=== PATIENT | female | born 1995 | race Two or more races ===

== ENCOUNTER → 2019-01-17 09:14 | Outpatient (CLI) | payer OTHER, SELFPAY ==
--- NOTE | 2019-01-17 09:19 | US_ITS ---
US transvaginal HISTORY: Painful cycles, pelvic pain ITS.REASON: pelvic pain ORDERING PHYSICIAN: Jose Iqbal MD PATIENT AGE: 23 years Comparison: None FINDINGS: The uterus is 7 x 3 x 4 cm with a combined endometrial thickness of 6 mm. No uterine mass evident. The left ovary is 2.8 x 1.5 cm in the right ovary is 3.5 x 1.4 cm. There are small follicles bilaterally. There is a small amount fluid in the cul-de-sac. Small nabothian cyst present IMPRESSION: Small amount of cul-de-sac fluid otherwise negative pelvic ultrasound
== END ==
PROVIDERS: Visit Provider Obstetrics & Gynecology
DX: R10.2 Pelvic and perineal pain (principal)
CPT/HCPCS: 76830

== ENCOUNTER → 2019-02-17 12:25 | Outpatient (POV) | payer OTHER, SELFPAY | PROVIDERS: Visit Provider Nurse Practitioner Family | DX: Z00.00 Encounter for general adult medical examination without abnormal findings (principal) ==